=== PATIENT | female | born 1970 | race Caucasian/White ===

== ENCOUNTER 2017-04-07 10:58 | Emergency (ER) | payer SELFPAY ==
--- NOTE | 2017-04-07 12:00 | RAD ---
RIGHT ANKLE THREE VIEWS: History: Fall off of a porch. FINDINGS: There is an obliquely oriented essentially nondisplaced distal fibular fracture. On the lateral view there is some lucency through the posterior edge of the tibial plafond which could represent a subt le occult fracture. I do not see any significant joint effusion associated and it may be the sequell ae of some older injury. IMPRESSION: Distal fibular fracture and a questionable tiny fracture along the posterior articular surface of th e tibia. POS: [facility]
== END 2017-04-07 12:30 | disposition home or self-care (01) ==
LOC: SCSER 10:58
DX: S82.831A Other fracture of upper and lower end of right fibula, initial encounter for closed fracture (principal); F17.210 Nicotine dependence, cigarettes, uncomplicated; W17.89XA Other fall from one level to another, initial encounter
CPT/HCPCS: 29515

== ENCOUNTER 2017-04-08 13:10 | Day surgery (SDC) | payer OTHER, SELFPAY ==
[2017-04-07 16:39] VITALS: BMI 20.9
[2017-04-08 14:10] LABS: #Basophils 0.1 thou/uL (0.0-0.2); #Eosinphils 0.1 thou/uL (0.0-0.7); #Lymphocytes 2.6 thou/uL (1.20-3.40); #Monocytes 0.6 thou/uL (0.11-0.59); #Neutrophils 6.4 thou/uL (1.40-6.50); %Basophils 0.6 % (0.0-1.0); %Lymphocytes 26.8 % (21.0-51.0); Hematocrit 44.8 % (36.0-47.0); Mean Platelet Volume 7.4 fL (7.4-10.4); Red Blood Cell (RBC) Count 4.33 mill/uL (4.20-5.40); White Blood Cell (WBC) Count 9.7 thou/uL (4.8-10.8)
[2017-04-08] MEDS ORDERED: Fentanyl 100 MCG/2 ML VIAL ONE ×5 (14:13→17:51)
[2017-04-08 14:33] LABS: Anion Gap 11 mmol/L (10-20); BUN (Urea Nitrogen) 6 mg/dL (7.0-18.7); Calc. Creatinine Clearance 97 mL/min (70-130); Calcium 8.9 mg/dL (7.8-10.44); Carbon Dioxide 24 mmol/L (22-29); Chloride 107 mmol/L (98-107); Estimated GFR-MDRD Greater than 90
[2017-04-08] MEDS ORDERED: Midazolam HCl 2 mg/2 ml Vial ONE ×2 (16:05→18:04)
[2017-04-08] MEDS ORDERED: Lidocaine 2% Jelly 5 ML TUBE ONE (16:06)
[2017-04-08] MEDS ORDERED: Propofol 200 MG/20 ML VIAL ONE (16:19)
[2017-04-08] MEDS ORDERED: Ondansetron HCl/PF 4 MG/2 ML Vial ONE (16:19)
[2017-04-08] MEDS ORDERED: Dexamethasone 20 MG/5 ML VIAL ONE (16:19)
[2017-04-08] MEDS ORDERED: Lidocaine 1% PF 5 ML VIAL ONE (16:19)
[2017-04-08] MEDS ORDERED: Ketorolac Tromethamine 30 MG/ML VIAL ONE (16:19)
[2017-04-08] MEDS ORDERED: Lidocaine 1% (PF) 30 ML VIAL ONE (17:54)
--- NOTE | 2017-04-08 20:48 | OP ---
DATE OF SURGERY: 04/08/2017 PREOPERATIVE DIAGNOSIS: Right lateral malleolus fracture. POSTOPERATIVE DIAGNOSIS: Right lateral malleolus fracture. SURGICAL PROCEDURE: Open reduction and internal fixation right lateral malleolus. ANESTHESIA: General. SURGEON: Jeovanny Ugarte M.D. CORRECTIONAL GUARD: Quoc Longoria PA-C. TOURNIQUET TIME: 25 minutes at 300 mmHg. IMPLANTS: Synthes 6-hole 1/3 tubular plate. COMPLICATIONS: None. DRAINS: None. SPECIMEN: None. OUTCOME: Satisfactory. INDICATIONS: The patient is status post twisting injury to right ankle, sustaining an oblique fract ure lateral malleolus with displacement. After discussion with the patient including risks and bene fits, we decided to proceed with open reduction and internal fixation. Informed consent has been ob tained. I believe all questions answered. PROCEDURE IN DETAIL: After the induction of general anesthesia, the patient was positioned supine o n the OR table then a sterile prep and drape was performed to the right lower extremity. Next, the limb was exsanguinated with Esmarch bandage, tourniquet inflated to 300 mmHg. A lateral incision wa s made over the distal fibula after skin was sharply incised, dissection was carried down bluntly to the underlying fibula. The fracture hematoma was lavaged from the wound and then the fracture was reduced and held in place with a bone tenaculum. Next, a front to back lag screw was applied in sta ndard AO fashion getting compression across the fracture segment and then this was followed by conto uring of a 6-hole 1/3 tubular plate to the lateral cortex of the distal fibula. At the completion o f this, the plate was applied with cancellous screws distally and cortical screws proximally. AP la teral mortise images were then obtained with C-arm that showed acceptable alignment of fracture and appropriate position of hardware. The wound was then irrigated and closed in layers with 0 Vicryl d eep, 2-0 Vicryl subcutaneously, and clifford for the skin. A Xeroform gauze, Webril, and sugar tong splint was applied to the ankle along with an Jan wrap dressing and then patient was transferred to recovery room in stable condition. There were no complications. Tourniquet was let down at the end of dressing and she tolerated the procedure well.
--- NOTE | 2017-04-08 21:24 | RAD ---
TWO INTRAOPERATIVE FLUOROSCOPIC IMAGES OF THE RIGHT ANKLE 04/08/17 HISTORY: ORIF right ankle. COMPARISON: 04/07/17 There is a lateral plate and screws transfixing the previously noted slightly oblique fracture invol ving the distal right fibula. There is improvement in alignment of the fracture fragments. No hardwa re complication is seen. The screws do extend medial to the cortex proximally with the single screw extending anterior to posterior extending just posterior to the posterior cortex of the distal fibul a. IMPRESSION: Internal fixation of distal right fibular fracture. POS: [facility]
== END 2017-04-08 19:25 | disposition home or self-care (01) ==
LOC: SDC 13:10
PROVIDERS: ATTEND Orthopaedic Surgery
PROC: 0QSJ04Z Reposition Right Fibula with Internal Fixation Device, Open Approach (ICD-10-PCS; principal; 2017-04-08)
DX: S82.61XA Displaced fracture of lateral malleolus of right fibula, initial encounter for closed fracture (principal); Z79.899 Other long term (current) drug therapy; Z98.51 Tubal ligation status; Z98.890 Other specified postprocedural states; Z83.3 Family history of diabetes mellitus; Z82.3 Family history of stroke
CPT/HCPCS: 36415; 76001; 80048; 85025; 96374; C1713; J1100; J1170; J1885; J2001; J2250; J2405; J2704; J3010

== ENCOUNTER 2018-02-07 00:23 | Emergency (ER) | payer SELFPAY ==
[2018-02-07] MEDS ORDERED: Ketorolac Tromethamine 30 MG/ML VIAL ONE (01:11)
--- NOTE | 2018-02-07 09:30 | RAD ---
RIGHT ANKLE 3 VIEWS: Date: 02/07/18 HISTORY: 47-year-old female with right ankle pain. COMPARISON: 04/08/17. FINDINGS: Metal plate and screws and internal fixation screws stabilize the distal fibula. There is some minima l lateral soft tissue swelling. There is a possible very tiny lateral talar dome osteochondral lesion . No evidence for acute fracture or dislocation. IMPRESSION: Stabilization of the right fibula with metal plate and screws. Possible tiny lateral talar dome osteo chondral lesion. Minimal right lateral soft tissue swelling. No evidence for an overt acute fracture. POS: [facility]
== END 2018-02-07 01:25 | disposition home or self-care (01) ==
LOC: SCSER 00:23
DX: S93.401A Sprain of unspecified ligament of right ankle, initial encounter (principal); F17.210 Nicotine dependence, cigarettes, uncomplicated; X50.1XXA Overexertion from prolonged static or awkward postures, initial encounter
CPT/HCPCS: 96372; J1885